=== PATIENT | male | born 1985 | race Caucasian/White ===

== ENCOUNTER 2017-08-20 18:26 | Inpatient (IN) | payer BC ==
[2017-08-20] MEDS: LORAZEPAM 2 MG INJ IV (20:21)
[2017-08-20] MEDS: CHLORDIAZEPOXIDE 25 MG CAP PO (20:21)
[2017-08-20] MEDS: SOD CHLORIDE 0.9% 1,000 ML IV (20:30)
[2017-08-20] MEDS ORDERED: ONDANSETRON 4 MG INJ IV (21:30)
[2017-08-20] MEDS ORDERED: NACL 0.9% 3 ML SYG IV (21:30)
[2017-08-20] MEDS: MULTIVITAMINS 10 ML, THIAMINE 100 MG, FOLIC ACID 1 MG in SOD CHLORIDE 0.9% 1,000 ML IVPB (21:42)
[2017-08-21] MEDS: SOD CHLORIDE 0.9% 1,000 ML IV ×3 (05:05→21:07)
[2017-08-21] MEDS: CHLORDIAZEPOXIDE 25 MG CAP PO ×3 (08:12→21:07)
[2017-08-21 08:20] LABS: CANNABINOIDS Negative (NEGATIVE)
[2017-08-21 08:33] LABS: AMPHETAMINE/METHAMPHETAMINE Negative (NEGATIVE); BARBITURATES Negative (NEGATIVE); COCAINE Negative (NEGATIVE); OPIATES Negative (NEGATIVE)
[2017-08-21 08:35] LABS: BENZODIAZEPINES Positive (NEGATIVE)
[2017-08-21 09:02] LABS: ADD MAN DIFF? NO
[2017-08-21 09:16] LABS: ABNORMAL IP MESSAGE 1; BASOPHILS % 0.5 % (0.0-2.0); EOSINOPHILS # 0.1 10^3/ul (0.0-0.5); EOSINOPHILS % 1.6 % (0.0-7.0); HEMATOCRIT 40.2 % (42.0-52.0); HEMOGLOBIN 13.8 g/dl (14.0-18.0); LYMPHOCYTES # 0.6 10^3/ul (0.8-2.9); MEAN CORPUSCULAR HEMOGLOBIN 31.4 pg (29.0-33.0); MEAN CORPUSCULAR HGB CONC 34.3 g/dl (32.0-37.0); MEAN CORPUSCULAR VOLUME 91.4 fl (82.0-101.0); MEAN PLATELET VOLUME 9.8 fl (7.4-10.4); MONOCYTE # 0.6 10^3/ul (0.3-0.9); MONOCYTES % 10.5 % (0.0-11.0); NEUTROPHIL # 4.8 10^3/ul (1.6-7.5); NEUTROPHILS % 78.1 % (39.0-77.0); PLATELET COUNT 399 10^3/UL (140-415); POSITIVE DIFF @See below; RED CELL DISTRIBUTION WIDTH 12.4 % (11.5-14.5)
[2017-08-21 09:16] LABS: WHITE BLOOD COUNT 6.1 10^3/ul (4.8-10.8)
[2017-08-21 09:37] LABS: ALANINE AMINOTRANSFERASE 33 IU/L (13-69); ALBUMIN/GLOBULIN RATIO 1.42; ALKALINE PHOSPHATASE 87 IU/L (42-121); ANION GAP 17 (8-16); ASPARTATE AMINO TRANSFERASE 45 IU/L (15-46); BILIRUBIN,INDIRECT 1.2 mg/dl (0-1.1); BILIRUBIN,TOTAL 1.2 mg/dl (0.2-1.3); BLOOD UREA NITROGEN 5 mg/dl (7-20); CALCIUM 8.8 mg/dl (8.4-10.2); CARBON DIOXIDE 26 mmol/L (21-31); CHLORIDE 100 mmol/L (97-110); CHOLESTEROL 176 mg/dl (100-200); CREATININE 0.61 mg/dl (0.61-1.24); GLUCOSE 77 mg/dl (70-220); HDL CHOLESTEROL 87 mg/dl (28-63); LDL CHOLESTEROL,CALCULATED 65 mg/dl; POTASSIUM 3.8 mmol/L (3.5-5.1); SODIUM 139 mmol/L (135-144); TOTAL PROTEIN 6.8 g/dl (6.1-8.1); TRIGLYCERIDES 118 mg/dl (0-149)
[2017-08-21 10:03] LABS: HEMOGLOBIN A1C 5.3 % (0-5.9)
[2017-08-21] MEDS: ACETAMINOPHEN 325 MG TAB PO (17:31)
[2017-08-21] MEDS: MULTIVITAMINS 10 ML, THIAMINE 100 MG, FOLIC ACID 1 MG in SOD CHLORIDE 0.9% 1,000 ML IVPB (21:07)
[2017-08-21] MEDS: LORAZEPAM 2 MG INJ IV (21:19)
[2017-08-22] MEDS: SOD CHLORIDE 0.9% 1,000 ML IV ×3 (04:30→21:44)
[2017-08-22] MEDS: CHLORDIAZEPOXIDE 25 MG CAP PO ×4 (08:39→21:34)
[2017-08-22] MEDS ORDERED: DULOXETINE 20 MG CAP DR PO (13:00)
[2017-08-22] MEDS: BISACODYL (EC) 5 MG TAB PO (14:16)
[2017-08-22] MEDS: DOCUSATE SODIUM 100 MG CAP PO (14:16)
[2017-08-22] MEDS: LORAZEPAM 2 MG INJ IV (21:43)
[2017-08-22] MEDS: MULTIVITAMINS 10 ML, THIAMINE 100 MG, FOLIC ACID 1 MG in SOD CHLORIDE 0.9% 1,000 ML IVPB (21:44)
[2017-08-23] MEDS: SOD CHLORIDE 0.9% 1,000 ML IV ×2 (04:30→10:02)
[2017-08-23 07:50] LABS: ADD MAN DIFF? NO
[2017-08-23 07:55] LABS: BASOPHILS % 0.7 % (0.0-2.0); EOSINOPHILS # 0.2 10^3/ul (0.0-0.5); EOSINOPHILS % 2.9 % (0.0-7.0); HEMATOCRIT 40.3 % (42.0-52.0); HEMOGLOBIN 13.9 g/dl (14.0-18.0); LYMPHOCYTES # 0.9 10^3/ul (0.8-2.9); MEAN CORPUSCULAR HEMOGLOBIN 31.5 pg (29.0-33.0); MEAN CORPUSCULAR HGB CONC 34.5 g/dl (32.0-37.0); MEAN CORPUSCULAR VOLUME 91.4 fl (82.0-101.0); MEAN PLATELET VOLUME 10.1 fl (7.4-10.4); MONOCYTE # 0.6 10^3/ul (0.3-0.9); MONOCYTES % 9.9 % (0.0-11.0); NEUTROPHIL # 4.2 10^3/ul (1.6-7.5); NEUTROPHILS % 70.8 % (39.0-77.0); PLATELET COUNT 357 10^3/UL (140-415); RED BLOOD COUNT 4.41 10^6/ul (4.70-6.10); RED CELL DISTRIBUTION WIDTH 12.5 % (11.5-14.5)
[2017-08-23 07:55] LABS: WHITE BLOOD COUNT 5.9 10^3/ul (4.8-10.8)
[2017-08-23 08:26] LABS: ANION GAP 16 (8-16); BLOOD UREA NITROGEN 8 mg/dl (7-20); CALCIUM 8.9 mg/dl (8.4-10.2); CARBON DIOXIDE 25 mmol/L (21-31); CHLORIDE 104 mmol/L (97-110); CREATININE 0.61 mg/dl (0.61-1.24); GLUCOSE 92 mg/dl (70-220); MAGNESIUM 1.9 mg/dl (1.7-2.5); PHOSPHORUS 5.2 mg/dl (2.5-4.9); POTASSIUM 3.5 mmol/L (3.5-5.1); SODIUM 141 mmol/L (135-144)
[2017-08-23] MEDS: CHLORDIAZEPOXIDE 25 MG CAP PO ×3 (08:42→21:14)
[2017-08-23] MEDS: THIAMINE 100 MG TAB PO (12:18)
[2017-08-23] MEDS: FOLIC ACID 0.4 MG TAB PO (14:06)
[2017-08-23] MEDS: DULOXETINE 20 MG CAP DR PO (21:14)
[2017-08-24] MEDS: DULOXETINE 20 MG CAP DR PO (08:41)
[2017-08-24] MEDS: THIAMINE 100 MG TAB PO (08:41)
[2017-08-24] MEDS: FOLIC ACID 0.4 MG TAB PO (09:00)
== END 2017-08-24 13:21 | disposition home or self-care (01) | DRG 101 ==
LOC: MS4 18:26
DX: G40.89 Other seizures (principal); F10.239 Alcohol dependence with withdrawal, unspecified; F32.9 Major depressive disorder, single episode, unspecified
CPT/HCPCS: 80048; 80053; 80061; 80307; 83036; 83735; 84100; 84443; 85025; G0378

== ENCOUNTER 2017-08-26 13:07 | Emergency (ER) | payer BC ==
[2017-08-26 15:27] LABS: ADD MAN DIFF? NO
[2017-08-26 15:29] LABS: BASOPHIL # 0.1 10^3/ul (0.0-0.1); BASOPHILS % 0.5 % (0.0-2.0); HEMATOCRIT 39.5 % (42.0-52.0); HEMOGLOBIN 13.4 g/dl (14.0-18.0); LYMPHOCYTES # 0.7 10^3/ul (0.8-2.9); LYMPHOCYTES % 6.6 % (15.0-51.0); MEAN CORPUSCULAR HEMOGLOBIN 31.4 pg (29.0-33.0); MEAN CORPUSCULAR HGB CONC 33.9 g/dl (32.0-37.0); MEAN CORPUSCULAR VOLUME 92.5 fl (82.0-101.0); MEAN PLATELET VOLUME 9.5 fl (7.4-10.4); MONOCYTE # 0.6 10^3/ul (0.3-0.9); MONOCYTES % 5.7 % (0.0-11.0); NEUTROPHIL # 8.6 10^3/ul (1.6-7.5); NEUTROPHILS % 86.7 % (39.0-77.0); PLATELET COUNT 313 10^3/UL (140-415); RED BLOOD COUNT 4.27 10^6/ul (4.70-6.10); RED CELL DISTRIBUTION WIDTH 12.5 % (11.5-14.5)
[2017-08-26 15:29] LABS: WHITE BLOOD COUNT 9.9 10^3/ul (4.8-10.8)
[2017-08-26] MEDS: LORAZEPAM 1 MG TAB PO (15:29)
[2017-08-26] MEDS: LEVETIRACETAM 1000 MG (PMX) 100 ML IVPB (15:36)
[2017-08-26 15:46] LABS: ALANINE AMINOTRANSFERASE 45 IU/L (13-69); ALBUMIN 4.5 g/dl (3.3-4.9); ALKALINE PHOSPHATASE 76 IU/L (42-121); ANION GAP 15 (8-16); ASPARTATE AMINO TRANSFERASE 44 IU/L (15-46); BILIRUBIN,INDIRECT 0.7 mg/dl (0-1.1); BILIRUBIN,TOTAL 0.7 mg/dl (0.2-1.3); BLOOD UREA NITROGEN 15 mg/dl (7-20); CALCIUM 9.4 mg/dl (8.4-10.2); CARBON DIOXIDE 25 mmol/L (21-31); CHLORIDE 103 mmol/L (97-110); CREATININE 0.96 mg/dl (0.61-1.24); GLUCOSE 99 mg/dl (70-220); LIPASE 148 U/L (23-300); POTASSIUM 4.8 mmol/L (3.5-5.1); SODIUM 138 mmol/L (135-144); TOTAL PROTEIN 7.5 g/dl (6.1-8.1)
[2017-08-26 15:57] LABS: TROPONIN-I < 0.010 ng/ml (0.000-0.120)
[2017-08-26] MEDS: MULTIVITAMINS 10 ML, THIAMINE 100 MG, FOLIC ACID 1 MG, MAGNESIUM SULFATE 2 GM in SOD CH... IV (16:43)
== END 2017-08-26 19:02 | disposition home or self-care (01) ==
LOC: E/R 13:07
DX: E86.0 Dehydration (principal); F10.239 Alcohol dependence with withdrawal, unspecified; R40.2142 Coma scale, eyes open, spontaneous, at arrival to emergency department; R40.2252 Coma scale, best verbal response, oriented, at arrival to emergency department; R40.2362 Coma scale, best motor response, obeys commands, at arrival to emergency department; Z87.891 Personal history of nicotine dependence
CPT/HCPCS: 36415; 80053; 83690; 84484; 85025; 93005; 96374; 96375; 99284-25

== ENCOUNTER 2017-08-29 05:26 | Emergency (ER) | payer BC ==
[2017-08-29 06:15] LABS: ADD MAN DIFF? NO
[2017-08-29] MEDS: SOD CHLORIDE 0.9% 1,000 ML IV ×2 (06:16→08:28)
[2017-08-29 06:20] LABS: WHITE BLOOD COUNT 5.2 10^3/ul (4.8-10.8)
[2017-08-29 06:20] LABS: BASOPHILS % 0.8 % (0.0-2.0); EOSINOPHILS # 0.1 10^3/ul (0.0-0.5); EOSINOPHILS % 1.2 % (0.0-7.0); HEMATOCRIT 41.9 % (42.0-52.0); HEMOGLOBIN 14.4 g/dl (14.0-18.0); LYMPHOCYTES # 1.6 10^3/ul (0.8-2.9); LYMPHOCYTES % 30.4 % (15.0-51.0); MEAN CORPUSCULAR HEMOGLOBIN 31.6 pg (29.0-33.0); MEAN CORPUSCULAR HGB CONC 34.4 g/dl (32.0-37.0); MEAN CORPUSCULAR VOLUME 91.9 fl (82.0-101.0); MEAN PLATELET VOLUME 9.1 fl (7.4-10.4); MONOCYTE # 0.8 10^3/ul (0.3-0.9); MONOCYTES % 15.7 % (0.0-11.0); NEUTROPHIL # 2.7 10^3/ul (1.6-7.5); NEUTROPHILS % 51.5 % (39.0-77.0); PLATELET COUNT 425 10^3/UL (140-415); RED BLOOD COUNT 4.56 10^6/ul (4.70-6.10); RED CELL DISTRIBUTION WIDTH 12.5 % (11.5-14.5)
[2017-08-29 06:37] LABS: INR 0.95; PROTIME 12.8 Sec (11.9-14.9)
[2017-08-29 06:38] LABS: PARTIAL THROMBOPLASTIN TIME 27.4 Sec (25.0-35.0)
[2017-08-29 06:43] LABS: ALANINE AMINOTRANSFERASE 39 IU/L (13-69); ALBUMIN 4.8 g/dl (3.3-4.9); ALBUMIN/GLOBULIN RATIO 1.45; ALKALINE PHOSPHATASE 83 IU/L (42-121); ANION GAP 17 (8-16); ASPARTATE AMINO TRANSFERASE 42 IU/L (15-46); BILIRUBIN,INDIRECT 0.4 mg/dl (0-1.1); BILIRUBIN,TOTAL 0.4 mg/dl (0.2-1.3); BLOOD UREA NITROGEN 9 mg/dl (7-20); CARBON DIOXIDE 24 mmol/L (21-31); CHLORIDE 110 mmol/L (97-110); CREATININE 0.65 mg/dl (0.61-1.24); GLUCOSE 90 mg/dl (70-220); POTASSIUM 3.9 mmol/L (3.5-5.1); SODIUM 147 mmol/L (135-144); TOTAL PROTEIN 8.1 g/dl (6.1-8.1)
[2017-08-29] MEDS: LEVETIRACETAM 1000 MG (PMX) 100 ML IVPB (06:43)
[2017-08-29] MEDS: LORAZEPAM 2 MG INJ IV (08:28)
[2017-08-29] MEDS ORDERED: LORAZEPAM 2 MG INJ (08:31)
[2017-08-29 08:46] LABS: ADD UMIC NO; UR ASCORBIC ACID NEGATIVE (NEGATIVE); UR BILIRUBIN (Dip) NEGATIVE (NEGATIVE); UR BLOOD (Dip) NEGATIVE (NEGATIVE); UR CLARITY CLEAR (CLEAR); UR COLOR YELLOW (YELLOW); UR GLUCOSE (Dip) NEGATIVE (NEGATIVE); UR KETONES (Dip) TRACE mg/dL (NEGATIVE); UR LEUKOCYTE ESTERASE (Dip) NEGATIVE Leu/ul (NEGATIVE); UR NITRITE (Dip) NEGATIVE (NEGATIVE); UR SPECIFIC GRAVITY (Dip) 1.013 (1.003-1.030); UR TOTAL PROTEIN (Dip) NEGATIVE (NEGATIVE); UR UROBILINOGEN (Dip) NEGATIVE (NEGATIVE)
[2017-08-29 09:11] LABS: COCAINE Negative (NEGATIVE); OPIATES Negative (NEGATIVE)
[2017-08-29] MEDS: MAGNESIUM SULFATE 2 GM, MULTIVITAMINS 10 ML, THIAMINE 100 MG, FOLIC ACID 1 MG in SOD CH... IV (09:23)
[2017-08-29 10:01] LABS: AMPHETAMINE/METHAMPHETAMINE NEGATIVE (NEGATIVE); BARBITURATES NEGATIVE (NEGATIVE); BENZODIAZEPINES POSITIVE (NEGATIVE)
[2017-08-29 10:02] LABS: CANNABINOIDS POSITIVE (NEGATIVE)
== END 2017-08-29 14:40 | disposition home or self-care (01) ==
LOC: E/R 05:26
DX: R56.9 Unspecified convulsions (principal); F10.230 Alcohol dependence with withdrawal, uncomplicated; R40.2142 Coma scale, eyes open, spontaneous, at arrival to emergency department; R40.2252 Coma scale, best verbal response, oriented, at arrival to emergency department; R40.2362 Coma scale, best motor response, obeys commands, at arrival to emergency department; F17.210 Nicotine dependence, cigarettes, uncomplicated
CPT/HCPCS: 36415; 80053; 80307; 81003; 82962; 85025; 85610; 85730; 96374; 96375; 99284-25